=== PATIENT | female | born 1950 | race Caucasian/White ===

== ENCOUNTER 2017-03-16 19:46 | Inpatient (IN) ==
[2017-03-16] MEDS ORDERED: ONDANSETRON 4 MG/2 ML VIAL IV PRN (22:27)
[2017-03-16] MEDS ORDERED: ACETAMINOPHEN 325 MG TABLET PO PRN (22:27)
--- NOTE | 2017-03-16 22:41 | Hospitalist History & Physical ---
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 An MRI has been ordered for the morning. Consultation for hematology/oncology, radiation oncology and neurology have been ordered. Start Decadron. Current Visit: Yes (2) Altered mental status Status: Acute Assessment and plan: Secondary to metastatic lesions of the brain with surrounding edema. Current Visit: Yes Qualifiers: Altered mental status type: unspecified Qualified Code(s): R41.82 - Altered mental status, unspecified (3) Hypertension Status: Chronic Current Visit: Yes Qualifiers: Hypertension type: essential hypertension Qualified Code(s): I10 - Essential (primary) hypertension (4) Lung nodules Status: Acute Assessment and plan: This could be the primary source of her metastatic lesion given her previous history of smoking. Will likely need tissue biopsy for definitive diagnosis. Melanoma is also in the differential given her history of melanoma skin excision from the leg. Current Visit: Yes History of Present Illness Chief complaint: AMS History of present illness: Ms. Witt is a 67 year old female with a hx of HTN that presented to the ER at [facility] in [place] with AMS. She was found down at home by family members. They report she was last seen well yesterday evening around 6 PM. She was worked up in the emergency department for acute stroke. CT scan of her brain showed lesions consistent with metastatic disease. She was noted to have some surrounding edema. I was contacted by the emergency room physician in [place] for direct admission transfer to the ICU for further evaluation of her newly diagnosed metastatic disease. The patient was found to have lesions on her chest x-ray as well. She is unable to provide much history due to her altered mental status and confusion. Family members are not present at the time of her arrival to the CCU. She was seen and examined in room 126 with her nurse at the bedside. Records from [facility] were reviewed including her CT scan and chest x-ray as well as preliminary lab work. Her renal function is normal. Her history is significant for prior tobacco use and prior melanoma excision from her leg. CT of the brain shows multiple intra-axial lesions presumed to represent widespread metastatic disease. Lesions are seen in the left cerebellum, right posterior parietal lobe, and high left parietal lobe. She was found to have a 4 x 5 cm area of low density in the left cerebellum consistent with edema. Chest x-ray shows multiple right sided lung nodules. Home Medications Medication Instructions Recorded Confirmed Type Lovastatin 20 mg PO DAILY 03/16/17 03/16/17 History Meclizine [Antivert] 25 mg PO DAILY 03/16/17 03/16/17 History Propranolol Tab [Inderal Tab] 20 mg PO BID 03/16/17 03/16/17 History Tramadol HCl [Tramadol Tab] 50 mg PO Q6H PRN 03/16/17 03/16/17 History hydroCHLOROthiazide 25 mg PO DAILY 03/16/17 03/16/17 History [Hydrochlorothiazide] Allergies Allergy/AdvReac Type Severity Reaction Status Date / Time Sulfa (Sulfonamide Allergy Verified 03/16/17 22:25 Antibiotics) Medical,Surgical,& Family Hx - Medical History Cardio: History of: Hypertension - Surgical History Additional Surgical History: Skin cancer excision - Family History Family History: Reports;: Family Hypertension - Social History Smoking Status: Former smoker Frequency of Alcohol Use: None Type of Drug Use: None Marital Status: Lives With:: Alone Functional capacity: independent ambulation ROS unobtainable: due to mental status Exam - Constitutional Exam: Constitutional System: Mild distress. No tremulousness. Cooperative but confused. Unable to answer all questions. Head: Normocephalic, atraumatic. Ears, Nose and Throat System: No pain or tenderness. No epistaxis or discharge Eyes System: Pupils equal, round, and reactive. Extraocular muscles intact. Neck: Supple, without adenopathy, No jugular venous distention. No thyromegaly, neck mass, or prior surgery apparent. Respiratory System: Chest clear to auscultation. Cardiovascular System: Heart with regular rate and rhythm. No murmur. GI System: Abdomen soft, nontender. Normo active bowel sounds present. Musculoskeletal System: limbs with no pedal edema. Full distal pulses. Neurological System: No discernable sensory deficit. No aphasia. Responses are slowed but she is able to follow commands. No unilateral weakness noted. Psychiatric System: Conversation is limited due to altered mental status Results - Labs Lab Results: I have reviewed the past 24 hour labs - Diagnostic Findings Procedure: Chest x-ray: report reviewed by me, CT: report reviewed by me
[2017-03-16] MEDS: DEXAMETHASONE 4 MG/1 ML VIAL IV SCH (23:08)
[2017-03-16] MEDS: hydrALAZINE 20 MG/1 ML VIAL IV PRN (23:08)
[2017-03-17 05:00] LABS: Basophils % 0.1 % (0.0-0.8); Hematocrit 43.2 VOL% (35.7-47.0); Hemoglobin 15.1 GM/DL (12.0-16.0); Immature Granulocytes % 0.5 %; Immature Granulocytes Absolute 0.06 #; Lymphocytes # 0.5 10*3/uL (1.4-4.0); Lymphocytes % 3.9 % (21.3-54.2); Mean Corpuscular Hemoglobin 30 PG (27-34); Mean Corpuscular Volume 84.4 FL (87-102); Mean Platelet Volume 11.2 FL (9.6-12.0); Monocytes # 0.1 10*3/uL (0.11-0.8); Monocytes % 0.9 % (1.7-12.7); Neutrophils # 12.1 10*3/uL (1.4-7.4); Neutrophils % 94.6 % (38.7-73.9); Platelet Count 276 T/CUMM (130-400); Red Blood Count 5.12 MC/CUMM (3.8-5.5); Red Cell Distribution Width 13.2 % (9.3-17.3); White Blood Count 12.8 T/CUMM (4-12)
[2017-03-17] MEDS: DEXAMETHASONE 4 MG/1 ML VIAL IV SCH (05:20)
[2017-03-17 05:38] LABS: Albumin 3.7 G/DL (3.4-5.0); Bilirubin,Total 0.9 MG/DL (0.2-1.0); Calcium 9.1 MG/DL (8.5-10.1); Magnesium 1.7 MG/DL (1.8-2.4); Potassium 3.2 MMOL/L (3.5-5.1); Total Protein 6.5 G/DL (6.4-8.3)
[2017-03-17 05:40] LABS: Giant Platelets Few; Hypochromasia Slight; Lymphocytes 5 % (20-55); Platelet Estimate Adequate; Segmented Neutrophils 94 % (50-85); Total Cells Counted 100
--- NOTE | 2017-03-17 07:41 | XRay Report ---
Single view the chest. Indication: Shortness of breath. No previous study. The heart is normal in size. Mild atelectasis/hypoaeration is seen at the lung bases. The pulmonary vasculature is normal. There is no consolidation, pneumothorax, or pleural effusion. Degenerative changes of the shoulders and spinal column, mild in severity. Impression: Mild bilateral basilar atelectasis. PROCEDURE INTERPRETED AT [facility] DEPARTMENT OF RADIOLOGY Final Report Signed by: Dr. Melvi Foss
--- NOTE | 2017-03-17 07:44 | Oncology Consult Note ---
History of Present Illness Chief complaint: Brain metastases History of present illness: Ms. Witt is a 67 year old female who presented by referral from [place] with CT brain scan that suggested metastatic disease to the brain. The patient has a history of melanoma. She is also a heavy smoker. I cannot locate a report on the CT brain scan nor can I view the film of the brain scan, if it is available. In addition, I cannot obtain any additional information from this patient. She is not alert enough to give me an adequate history. I have reviewed her chest x-ray. It was interpreted as showing no masses but there appears to be a left mid lung nodule.. We may end up needing CTs of the chest, abdomen and pelvis ultimately. Past medical history is positive for allergies to sulfa and possibly additional meds but they are not listed. The remainder of this patient's past medical history, social history, review of systems as listed below. It is not complete. She is not alert enough to provide additional details and she appears acutely confused. Medical,Surgical,& Family Hx - Medical History Cardio: History of: Hypertension - Surgical History Additional Surgical History: Skin cancer excision - Family History Family History: Reports;: Family Hypertension - Social History Smoking Status: Former smoker Frequency of Alcohol Use: None Type of Drug Use: None Marital Status: Lives With:: Alone Functional capacity: independent ambulation ROS unobtainable: due to mental status Physical examination: General: The patient actually does not appear acutely ill although she is obviously disoriented and cannot answer questions in detail. She does attempt to cooperate however. Eyes: Normal lids and conjunctivae. ENT: Oral mucosa and pharynx are normal. Her pharynx is free of lesions or exudates. Her trachea is midline. Her voice is clear. Her hearing appears normal. Neck: Her trachea is midline and I palpate no abnormalities of the thyroid. Lungs: Relatively normal breath sounds without rubs, rales or rhonchi. The chest moves symmetrically with respiration and there is no chest wall tenderness. Cardiovascular: Her heart rhythm is regular without murmur, gallop or rub. There is no jugular venous distention, clubbing or cyanosis. Abdomen: I palpate no masses or organomegaly and there is no distention or ascites. Musculoskeletal: There is no focal muscle atrophy or bone or joint deformity. Neurologic: Cranial nerves II through XII appear to be intact. I find no focal neurologic deficits. Nodes: There is no cervical, supraclavicular or axillary adenopathy. Breasts: I palpate no masses. Skin: On cursory examination I could not find any definite site of the melanoma excision. I cannot locate the CT report or visual loss of the CT scan. Impression: Brain metastases of indefinite primary. She needs pulmonary consultation and radiation oncology consultation. I am ordering tumor markers and I will increase the dose of her corticosteroids. Thank you. Home Medications Medication Instructions Recorded Confirmed Type Lovastatin 20 mg PO DAILY 03/16/17 03/16/17 History Meclizine [Antivert] 25 mg PO DAILY 03/16/17 03/16/17 History Propranolol Tab [Inderal Tab] 20 mg PO BID 03/16/17 03/16/17 History Tramadol HCl [Tramadol Tab] 50 mg PO Q6H PRN 03/16/17 03/16/17 History hydroCHLOROthiazide 25 mg PO DAILY 03/16/17 03/16/17 History [Hydrochlorothiazide] Allergies Allergy/AdvReac Type Severity Reaction Status Date / Time Sulfa (Sulfonamide Allergy Verified 03/16/17 22:25 Antibiotics) Medical,Surgical,& Family Hx - Medical History Cardio: History of: Hypertension Neurology: History of: Vertigo Endocrine: History of: Dyslipidemia - Surgical History Neurologic Surgeries: Patient denies: Neurologic Surgery - Family History Family History: Reports;: Family Hypertension - Social History Smoking Status: Former smoker Frequency of Alcohol Use: None Type of Drug Use: None Exam - Constitutional Vitals: Period Temp Pulse Resp BP Sys/Carvalho Pulse Ox Last 24 Hr 97.9 F-98.4 F 56-119 14-26 99-177/52-165 96-100 Results - Labs CBC & BMP: 03/17/17 04:39 03/18/17 03:58
[2017-03-17] MEDS ORDERED: DEXAMETHASONE 4 MG/1 ML VIAL IV SCH (08:00)
--- NOTE | 2017-03-17 09:02 | Hospitalist Progress Note ---
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 Dr Young has seen her and ordered brain MRI. consider biopsy of nodules on her back. Dr Villagomez to see. She is on Keppra and IV Decadron. Dr Cal Jensen consulted. Her altered mental status and behavior is a little bit improved with Decadron this morning. She has pulmonary mass and nodules reported on outside CXR. Get CT of chest abd pelvis today. 2)hypokalemia- replace 3)HTN- start her propanolol back. Current Visit: Yes (2) Hypokalemia Status: Acute Current Visit: Yes (3) Altered mental status Status: Acute Current Visit: Yes Qualifiers: Altered mental status type: unspecified Qualified Code(s): R41.82 - Altered mental status, unspecified (4) Hypertension Status: Chronic Current Visit: Yes Qualifiers: Hypertension type: essential hypertension Qualified Code(s): I10 - Essential (primary) hypertension (5) Lung nodules Status: Acute Current Visit: Yes Hospitalist: Subjective Interval history: No events since admission, but is more alert per nursing. Answers questions though she is still unreliable historian. She does know her name and where she is. Exam - Constitutional Vitals: Period Temp Pulse Resp BP Sys/Carvalho Pulse Ox Last 24 Hr 97.8 F-98.4 F 56-122 14-26 99-177/52-165 96-100 General appearance: normal weight, mild distress (restless, wants to take her gown off) - Head Head exam: Present: normocephalic, atraumatic - Eye Eye exam: Present: EOMI. Absent: scleral icterus - ENT ENT exam: Present: normal exam - Neck Neck exam: Absent: lymphadenopathy, thyromegaly - Respiratory Respiratory exam: Present: clear to auscultation bilaterally - Cardiovascular Cardiovascular exam: Present: regular rate and rhythm - GI/Abdominal GI/Abdominal exam: Present: normal bowel sounds, soft. Absent: tenderness - Extremities Exam Extremities exam: Absent: edema - Back Exam Back exam: Present: other (4 subq nodules 3 of which have redness of the overlying skin. NO drainage, not tender or warm. They are hard/calcified but mobile. ) - Neurological Exam Neurological exam: Present: alert, other (cooperative for short periods then back to being restless. follows commands. ). Absent: oriented X3 - Skin Skin exam: Present: other (no inguinal or cerviacal or axillary lymphadenopathy) Results - Labs CBC & BMP: 03/17/17 04:39 03/17/17 04:39 Lab Results: I have reviewed the past 24 hour labs
[2017-03-17] MEDS: DEXAMETHASONE INJ 20 MG in SODIUM CHLORIDE 0.9% 50 ML IV SCH ×2 (09:03→20:34)
[2017-03-17] MEDS: ENOXAPARIN 40 MG/0.4 ML SYRINGE SUBCUT SCH (09:03)
[2017-03-17] MEDS: PANTOPRAZOLE 40 MG TABLET PO SCH (09:03)
[2017-03-17] MEDS: levETIRAcetam 500 MG TABLET PO SCH ×2 (09:03→20:34)
[2017-03-17] MEDS: PROPRANOLOL 20 MG TABLET PO SCH ×2 (09:03→20:34)
[2017-03-17] MEDS: LOVASTATIN 20 MG TABLET PO SCH (09:03)
[2017-03-17] MEDS: LORazepam 2 MG/1 ML VIAL IV PRN ×4 (09:04→22:05)
[2017-03-17] MEDS ORDERED: POTASSIUM CHLORIDE 20 MEQ TABLET PO ONE (09:07)
--- NOTE | 2017-03-17 09:10 | Neurology Consult Note ---
History of Present Illness History of present illness: Patient is unable to provide me any history. History basically obtained from the chart. Ms. Witt is a 67 year old right-handed white lady who was transferred from [place] with CT brain scan that suggested metastatic disease to the brain. She was found down at first it was thought that she had a stroke. CT of the brain revealed multiple lesions of the brain suggestive of metastatic disease. Her chest x-ray is also positive for multiple lesions. The patient has a history of melanoma. She is also a heavy smoker. No further information is available. CT scan of the brain has not been uploaded for review. Home Medications Medication Instructions Recorded Confirmed Type Lovastatin 20 mg PO DAILY 03/16/17 03/16/17 History Meclizine [Antivert] 25 mg PO DAILY 03/16/17 03/16/17 History Propranolol Tab [Inderal Tab] 20 mg PO BID 03/16/17 03/16/17 History Tramadol HCl [Tramadol Tab] 50 mg PO Q6H PRN 03/16/17 03/16/17 History hydroCHLOROthiazide 25 mg PO DAILY 03/16/17 03/16/17 History [Hydrochlorothiazide] Allergies Allergy/AdvReac Type Severity Reaction Status Date / Time Sulfa (Sulfonamide Allergy Verified 03/16/17 22:25 Antibiotics) ROS unobtainable: due to mental status, due to delirium Medical,Surgical,& Family Hx - Medical History Cardio: History of: Hypertension Neurology: History of: Vertigo Endocrine: History of: Dyslipidemia - Surgical History Neurologic Surgeries: Patient denies: Neurologic Surgery - Family History Family History: Reports;: Family Hypertension - Social History Smoking Status: Former smoker Frequency of Alcohol Use: None Type of Drug Use: None Exam - Constitutional Vitals: Period Temp Pulse Resp BP Sys/Carvalho Pulse Ox Last 24 Hr 97.8 F-98.4 F 56-122 14-26 99-177/52-165 96-100 Exam: GENERAL: Patient is in no acute distress. NECK: Neck is supple. There is no JVD. No carotid bruits present. No thyroid masses. CVS: First and second heart sounds are normal. There is no S3 present. Regular rate and rhythm. RESPIRATORY: Lungs are clear to auscultation without any rales or rhonchi. ABDOMEN: Soft and non-tender. Bowel sounds are present. There is no hepatosplenomegaly. EXT: There is no palpable edema. Peripheral pulses are present. Skin: No rashes Central Nervous system: General: Sleepy but arousable Speech: Fluent Comprehension: Impaired Facial expressions: Normal Cranial Nerves: CN1/Olfactory: Normal CN II/ Optic: Normal, Visual Urias unreliable CN III, and : [place] & EOMI CN V: Normal & intact CN VII: face is symmetric CNVIII: Normal CN XI/X/XI/XII: Cannot be assessed Motor: Bulk and Tone is normal. Strength cannot be assessed however moving all 4 extremities Sensory: Unreliable Reflexes: 1+ and symmetrical Cerebellar function: Cannot be assessed Toes: Equivocal Gait: Cannot be assessed Assessment: Metastatic brain disease Delirium Recommendations: Agree with steroids. Continue Keppra for now Agree with MRI of the brain and radiation oncology consultation We will watch her closely Thank you for the consult Results - Labs CBC & BMP: 03/17/17 04:39 03/17/17 04:39
--- NOTE | 2017-03-17 11:59 | Magnetic Resonance Report ---
Exam: MR head/brain w and wo con Date: 03/17/2017 4:00 AM Comparison: CT brain 03/16/2017 Indication: Brain metastasis, history of melanoma Technique:[Multiple acquisitions were obtained including sagittal T1 scans before and after the injection of 13 cc of Dotarem, coronal T1 scans with contrast, and axial ADC, diffusion, FLAIR, T2, GRE, and T1 scans before and after the injection contrast. Scans were obtained on a 1.5 Linda magnet.] Findings: The lateral and third ventricles are normal in size with with no midline displacement. Effacement of the fourth ventricle with adjacent cerebral edema which contains a 26 x 25 x 19 mm homogeneously enhancing lesion. Multiple smaller enhancing lesions are noted in the right cerebellum, right occipital lobe, right parietal, and left frontoparietal location. Renal enhancement within the 23 x 21 x 21 mm lesion in the right posterior parietal location. No evidence of significant hemorrhage or extracerebral collection. Minimal cerebellar ectopia with unremarkable sella. Mucosal thickening/fluid in the paranasal sinuses, especially the opacified left sphenoid sinus. No acute findings in the orbits, temporal bones, qawalangin of [place], or venous sinuses. Impression: Evidence of metastatic disease. There is associated edema especially within the largest lesion in the left cerebellum with compression and displacement of the fourth ventricle and minimal cerebellar ectopia. Sinusitis. PROCEDURE INTERPRETED AT [facility] DEPARTMENT OF RADIOLOGY Final Report Signed by: Dr. Hoda Kirk
[2017-03-17] MEDS: hydrALAZINE 20 MG/1 ML VIAL IV PRN (12:06)
--- NOTE | 2017-03-17 13:24 | CT Report ---
Referring physician: Sharonda Toscano EXAM: CT chest, abdomen and pelvis with contrast DATE: 03/17/2017 COMPARISON: None REASON: Brain metastasis, history of melanoma TECHNIQUE: Axial images of the chest, abdomen and pelvis were obtained after administration of 100 cc of Omnipaque 350 IV contrast. Minimal oral contrast given. Sagittal and coronal reformatted images were provided. Total DLP was 597.20 mGy*cm. FINDINGS:: The heart is borderline in size with cardiac fat pads. No evidence of aortic dissection or pulmonary emboli. Numerous noncalcified pulmonary nodules are noted. Some of the findings are difficult to separate from the level of the rossy and exclude additional adenopathy. The largest mass measures 29 mm in the right lower lobe. There is associated atelectasis. Numerous soft tissue masses are noted the largest finding in the chest measuring 26 mm in the upper right back location. The liver is normal in size with no masses, dilated ducts, or calcified gallstones. The wall of the gallbladder appears minimally thickened with mild fatty infiltration of the liver. Calcified granulomata in the spleen which is normal in size. 13 mm hypodense the noted in the medial spleen which fills in with contrast on the delayed scans. Fatty replacement of the head of the pancreas. 25 mm left adrenal nodule which demonstrates central hypodensity. Small hypodensities in the kidneys which may represent cysts. 7 mm exophytic hypodensity in the lower pole of the left kidney. The abdominal aorta is normal in size with arterial calcifications but no adjacent adenopathy. Small hiatal hernia with no dilatation of the small bowel. Diverticulosis of the colon with limited evaluation of the bowel which contains only minimal oral contrast. No evidence of diverticulitis, appendicitis, free air, or free fluid. Atrophic uterus and ovaries. Leblanc catheter within decompressed urinary bladder. Degenerative changes are noted. IMPRESSION: Findings consistent with pulmonary and soft tissue metastatic disease in patient with history of melanoma. Additional indeterminate lesions in the spleen, left adrenal gland, and left kidney. Ultrasound guided biopsy of the largest soft tissue mass in the upper right back location may be helpful for further evaluation. Nonspecific thickening of the wall of the gallbladder with fatty infiltration of the liver. Leblanc catheter in decompressed urinary bladder. Small hiatal hernia with diverticulosis of colon. The CT exam was performed using one or more of the following dose reduction techniques: Automated exposure control and adjustment of the mA and/or kV according to patient size. PROCEDURE INTERPRETED AT [facility] DEPARTMENT OF RADIOLOGY Final Report Signed by: Dr. Hoda Kirk
[2017-03-17] MEDS: traMADol 50 MG TABLET PO PRN (20:34)
[2017-03-18] MEDS: LORazepam 2 MG/1 ML VIAL IV PRN (04:35)
[2017-03-18 04:45] LABS: Calcium 9.1 MG/DL (8.5-10.1); Osmolality,Calculated 280.7 MOS/KG (273-304); Potassium 3.7 MMOL/L (3.5-5.1)
--- NOTE | 2017-03-18 07:43 | Oncology Progress Note ---
Oncology Subjective PN Interval history: Currently the patient is sedated. She is being sedated because she becomes agitated and removes her clothes and struggles. It is difficult to determine whether she is more alert with a higher dose of dexamethasone or not. We need to establish the origin of the metastatic disease to her brain. I still cannot see the films. It may be necessary to refer her to an institution that has neurosurgery available. We will continue high-dose corticosteroids. Tumor markers are pending except for the CEA level, which is normal. Exam - Constitutional Vitals: Period Temp Pulse Resp BP Sys/Carvalho Pulse Ox Last 24 Hr 97.1 F-98.9 F 59-122 12-24 96-172/43-132 90-99 Results - Labs CBC & BMP: 03/17/17 04:39 03/18/17 03:58
[2017-03-18] MEDS: PROPRANOLOL 20 MG TABLET PO SCH ×2 (09:11→20:59)
[2017-03-18] MEDS: DEXAMETHASONE INJ 20 MG in SODIUM CHLORIDE 0.9% 50 ML IV SCH ×2 (09:21→20:58)
[2017-03-18] MEDS: PANTOPRAZOLE 40 MG TABLET PO SCH (09:22)
[2017-03-18] MEDS: ENOXAPARIN 40 MG/0.4 ML SYRINGE SUBCUT SCH (09:22)
[2017-03-18] MEDS: levETIRAcetam 500 MG TABLET PO SCH ×2 (09:22→20:59)
[2017-03-18] MEDS: LOVASTATIN 20 MG TABLET PO SCH (09:22)
[2017-03-18 09:27] LABS: PT Patient Result 10.2 SECS
--- NOTE | 2017-03-18 11:18 | General Surgery Consult Note ---
Assessment and Plan - Time spent with patient Time spent with patient: Greater than 30 minutes (1) back nodules Status: Acute Assessment and plan: 67-year-old white female admitted by the hospitalist service with altered mental status and found to have lung nodules and metastatic cancer to the brain. Patient is currently sedated due to agitation. Patient was found to have multiple calcified nodules on her back that hospitalist has requested biopsy due to her current state of health. Patient's family is requesting at this time to hold off on biopsy so they can discuss it further with more family members and the patient. Dr. Andersen will see and examined patient and further recommendations to follow. When and/or if family is ready he can do a punch biopsy at the bedside when needed. 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 Witt is a 67 year old white female with history of hypertension admitted by the hospitalist service on 03/16/2017 with altered mental status. She is found to have lung nodules and metastatic cancer to the brain. She is being followed by neurology and oncology. Patient is currently sedated due to her agitation. History taken from nursing and medical record. Patient was found to have multiple nodules on her back that Dr. Andersen was consulted to evaluate. Patient is afebrile vital signs are stable, labs are relatively normal. She is being transferred to the floor. Home Medications Medication Instructions Recorded Confirmed Type Lovastatin 20 mg PO DAILY 03/16/17 03/16/17 History Meclizine [Antivert] 25 mg PO DAILY 03/16/17 03/16/17 History Propranolol Tab [Inderal Tab] 20 mg PO BID 03/16/17 03/16/17 History Tramadol HCl [Tramadol Tab] 50 mg PO Q6H PRN 03/16/17 03/16/17 History hydroCHLOROthiazide 25 mg PO DAILY 03/16/17 03/16/17 History [Hydrochlorothiazide] Allergies Allergy/AdvReac Type Severity Reaction Status Date / Time Sulfa (Sulfonamide Allergy Verified 03/16/17 22:25 Antibiotics) Medical,Surgical,& Family Hx - Medical History Cardio: History of: Hypertension Neurology: History of: Vertigo Endocrine: History of: Dyslipidemia - Surgical History Neurologic Surgeries: Patient denies: Neurologic Surgery - Family History Family History: Reports;: Family Hypertension - Social History Smoking Status: Former smoker Frequency of Alcohol Use: None Type of Drug Use: None ROS unobtainable: due to mental status Exam - Constitutional Vitals: Period Temp Pulse Resp BP Sys/Carvalho Pulse Ox Last 24 Hr 96.6 F-98.9 F 59-113 12-24 96-172/43-132 90-99 Exam: 67-year-old white female, sedated Chest clear CV regular rate and rhythm Abdomen soft nontender Upper back with multiple calcified nodules that are movable, no cellulitis or drainage Extremities no edema Results - Labs CBC & BMP: 03/17/17 04:39 03/18/17 03:58 Lab Results: I have reviewed the past 24 hour labs
--- NOTE | 2017-03-18 11:19 | Hospitalist Progress Note ---
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 Discussion of treatment options iwth Dr Jensen this afternoon. family leaning toward no biopsy or treatment at this time. They aslo anticipate her being DNR once her son arrives. 2)hypokalemia- replaced 3)HTN- better on propanolol. 4)dispo- to floor. Current Visit: Yes (2) Hypokalemia Status: Acute Current Visit: Yes (3) Altered mental status Status: Acute Current Visit: Yes Qualifiers: Qualified Code(s): R41.82 - Altered mental status, unspecified (4) Hypertension Status: Chronic Current Visit: Yes Qualifiers: Qualified Code(s): I10 - Essential (primary) hypertension (5) Lung nodules Status: Acute Current Visit: Yes Hospitalist: Subjective Interval history: Ms Witt is increasingly alert "by the hour" per her family. She is not alert enough for them to talk to her about her metastatic disease which they want to do themselves. Her daughters are here along with her sister and brother and they all agree that she should be DNR but want their brother to be here to be included in that decision moment. She has told them many times she did not want any treatment for anything and they are confident she would not want resuscitation. Their brother should be here this morning. In the meantime they are counting on Dr Cal Jensen to give them treatment options before they decide not to do anything- she will go to cancer center at 1pm. They also decline any biopsy at this time because they don't think she would want anything invasive. I talked to the family about her prognosis and code status for 15 minutes. Exam - Constitutional Vitals: Period Temp Pulse Resp BP Sys/Carvalho Pulse Ox Last 24 Hr 96.6 F-98.9 F 59-113 12-24 96-172/43-132 90-99 General appearance: normal weight, no acute distress (wakes more easily and is less restless, knows she is in the hospital but doesn't ask why. ) - Eye Eye exam: Present: EOMI. Absent: scleral icterus Pupils: Present: WELL[place] - Respiratory Respiratory exam: Present: clear to auscultation bilaterally - Cardiovascular Cardiovascular exam: Present: regular rate and rhythm - GI/Abdominal GI/Abdominal exam: Present: normal bowel sounds, soft. Absent: tenderness - Extremities Exam Extremities exam: Absent: edema Results - Labs CBC & BMP: 03/17/17 04:39 03/18/17 03:58 Lab Results: I have reviewed the past 24 hour labs
--- NOTE | 2017-03-18 14:06 | Radiation Oncology Letter ---
Radiation Oncology - Letter Ms. Witt is a 67-year-old white female who has a history of melanoma diagnosed in November 2015 she was treated with excision the original primary was involving the right thigh, had a thickness of invasion of 19.5 mm it was Titus's level 4 with surface ulceration. Patient recently presented with changes in mental status some CT of the head showed evidence of intracranial lesions an MRI was performed which showed multifocal brain metastasis bilaterally. CT of the chest abdomen and pelvis showed pulmonary and soft tissue metastasis. The patient is referred for palliative radiotherapy with a multifocal lesion like this in the brain I would favor treating with 3000 cGy in 10 fractions to try to achieve palliation.
--- NOTE | 2017-03-18 14:10 | Event Note ---
D/w patient's daughter about need for biopsy. At this point, the family does not want any invasive procedures. They have stated that they will attempt to get prior pathology and radiology results/scans sent up for review. Can complete a formal consult if/when a new tissue biopsy is needed.
--- NOTE | 2017-03-18 16:14 | Neurology Progress Note ---
Neurology - PN : Subjective Interval history: Patient is sedated at this time. Chart reviewed. Family did not want to be very aggressive at this point. MRI of the brain was reviewed. It shows multiple lesions suggestive of metastasis. Family also thinking about initiation of radiation treatment. No seizures reported. Exam (Progress Note) - Constitutional Vitals: Period Temp Pulse Resp BP Sys/Carvalho Pulse Ox Last 24 Hr 96.6 F-98.4 F 59-113 12-24 97-172/43-125 90-99 Exam: GENERAL: Patient is in no acute distress. NECK: Neck is supple. There is no JVD. No carotid bruits present. No thyroid masses. CVS: First and second heart sounds are normal. There is no S3 present. Regular rate and rhythm. RESPIRATORY: Lungs are clear to auscultation without any rales or rhonchi. ABDOMEN: Soft and non-tender. Bowel sounds are present. There is no hepatosplenomegaly. EXT: There is no palpable edema. Peripheral pulses are present. Skin: No rashes Central Nervous system: General: Sedated Speech: None Comprehension: Impaired Facial expressions: Normal Cranial Nerves: CN1/Olfactory: Normal CN II/ Optic: Normal, Visual Urias unreliable CN III, and : WELL[place] & EOMI CN V: Normal & intact CN VII: face is symmetric CNVIII: Normal CN XI/X/XI/XII: Cannot be assessed Motor: Bulk and Tone is normal. Strength cannot be assessed however moving all 4 extremities Sensory: Unreliable Reflexes: 1+ and symmetrical Cerebellar function: Cannot be assessed Toes: Equivocal Gait: Cannot be assessed Assessment: Metastatic brain disease Delirium Recommendations: Agree with steroids. 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 Current Visit: Yes
[2017-03-18] MEDS: traMADol 50 MG TABLET PO PRN (22:07)
--- NOTE | 2017-03-19 08:12 | Oncology Progress Note ---
Oncology Subjective PN Interval history: I received word yesterday that the family did not want to pursue a tissue diagnosis. I have not met with the family yet. I attempted to meet with him yesterday but they were not in the CCU waiting room. Apparently the family wants to get the prior pathology report from the resection of the melanoma. I know that the pathology report is around and I understand that the melanoma was ulcerated and that there may have been other poor prognostic findings on it. I actually had a conference with 1 of the patient's daughters this morning. Ms. Witt is more alert today, probably due to the increase in corticosteroids. What I have explained to the daughter is that we cannot use targeted therapy for a cancer of unknown primary. We need a tissue diagnosis. This is most likely metastatic melanoma but insurance carriers insist on tissue diagnosis at this point. If we can document this is melanoma, we could consider Keytruda next or possibly 1 of the other targeted therapies although in my opinion, Keytruda has diffuse side effects and may have among the highest response rates. It is given once every 3 weeks and is given 1 day every 3 weeks. The daughter expresses the opinion that Ms. Witt will not likely accept this and I am certainly not trying to convince her to take treatment that she does not want. In fact, with brain metastases, the likelihood of her surviving another 6 months is very slim. If this does represent metastatic melanoma, prognosis is poor. I still cannot locate the pathology report from the original resection of the melanoma. I do not know whether specific markers which may be important. Testing for BRAF, MEK , KIT livery car driver mutations may be important. Exam - Constitutional Vitals: Period Temp Pulse Resp BP Sys/Carvalho Pulse Ox Last 24 Hr 97.0 F-97.8 F 63-99 16-20 99-156/48-97 92-97 Results - Labs CBC & BMP: 03/17/17 04:39 03/18/17 03:58
[2017-03-19] MEDS: ENOXAPARIN 40 MG/0.4 ML SYRINGE SUBCUT SCH (09:31)
[2017-03-19] MEDS: DEXAMETHASONE INJ 20 MG in SODIUM CHLORIDE 0.9% 50 ML IV SCH ×2 (09:32→22:10)
[2017-03-19] MEDS: PROPRANOLOL 20 MG TABLET PO SCH ×2 (09:33→21:12)
[2017-03-19] MEDS: levETIRAcetam 500 MG TABLET PO SCH ×2 (09:33→21:11)
[2017-03-19] MEDS: PANTOPRAZOLE 40 MG TABLET PO SCH (09:33)
[2017-03-19] MEDS: LOVASTATIN 20 MG TABLET PO SCH (09:33)
--- NOTE | 2017-03-19 11:18 | Hospitalist Progress Note ---
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 The patient's oncologist is evaluating and discussing treatment options with the patient and her family. Current Visit: Yes Hospitalist: Subjective Interval history: The patient is resting quietly and has no seizure activity at this time. The patient has not complained of pain. Exam - Constitutional Vitals: Period Temp Pulse Resp BP Sys/Carvalho Pulse Ox Last 24 Hr 97.6 F-97.8 F 71-99 16-20 113-156/59-86 95-97 General appearance: no acute distress - Respiratory Respiratory exam: Present: clear to auscultation bilaterally - Cardiovascular Cardiovascular exam: Present: regular rate and rhythm - GI/Abdominal GI/Abdominal exam: Present: normal bowel sounds Results - Labs CBC & BMP: 03/17/17 04:39 03/18/17 03:58 Lab Results: I have reviewed the past 24 hour labs
[2017-03-19 11:56] LABS: Cancer Antigen 125 12 U/mL (<46)
[2017-03-20] MEDS: LORazepam 2 MG/1 ML VIAL IV PRN ×3 (01:03→14:08)
[2017-03-20 01:56] LABS: Breast Carcinoma Ag(CA 27.29) < 12.0 U/mL (<=38.0)
[2017-03-20] MEDS: traMADol 50 MG TABLET PO PRN ×2 (04:08→21:44)
--- NOTE | 2017-03-20 07:39 | Oncology Progress Note ---
Oncology Subjective PN Interval history: When I talked to the patient's family yesterday, the daughter expressed the feeling that they would not want to place the patient on any kind of targeted intravenous therapy. They were going to talk this over however. I have explained to them that we definitely need a tissue diagnosis before we could even pursue systemic chemotherapy. I had another extremely lengthy talk with a second daughter today. They want to proceed with radiation therapy. Ms. Witt was lucid yesterday and indicated that she did not want to be "cut on" and declined to have any type of biopsy procedure. At this point, I explained to the second daughter that we cannot assume that this is metastatic melanoma and in addition we need additional tissue to evaluate it for any mutations it might be present and that might affect our approach to targeted therapy. I will be available to discuss additional treatment options with the family but I will not make any plans to actually proceed with systemic therapy until after she finishes radiation therapy and has had a biopsy proven diagnosis. Exam - Constitutional Vitals: Period Temp Pulse Resp BP Sys/Carvalho Pulse Ox Last 24 Hr 97.6 F-99.1 F 63-89 16-20 130-176/64-83 92-97 Results - Labs CBC & BMP: 03/17/17 04:39 03/18/17 03:58
[2017-03-20] MEDS: ENOXAPARIN 40 MG/0.4 ML SYRINGE SUBCUT SCH (08:43)
[2017-03-20] MEDS: LOVASTATIN 20 MG TABLET PO SCH (08:43)
[2017-03-20] MEDS: PANTOPRAZOLE 40 MG TABLET PO SCH (08:43)
[2017-03-20] MEDS: levETIRAcetam 500 MG TABLET PO SCH ×2 (08:43→21:43)
[2017-03-20] MEDS: PROPRANOLOL 20 MG TABLET PO SCH ×2 (08:44→21:43)
[2017-03-20] MEDS: DEXAMETHASONE INJ 20 MG in SODIUM CHLORIDE 0.9% 50 ML IV SCH ×2 (08:44→21:45)
--- NOTE | 2017-03-20 10:36 | CT Report ---
Referring physician: Braxton Sanz Exam: CT treatment planning Date: 03/20/2017 Comparison: 03/16/2017 Reason: Brain metastasis Technique: Axial images of the head were obtained without the use of contrast. Total DLP was 1678.9 mGy*cm. Findings: The third and lateral ventricles remain normal in size. Persistent effacement of the fourth ventricle with multiple metastatic lesions. There is surrounding edema with findings most remaining most pronounced in the left cerebellum. Persistent mucosal thickening/fluid in the paranasal sinuses, especially in the left sphenoid sinus. Impression: The scans appear adequate radiation therapy plan purposes in patient with known metastatic disease. Sinusitis.. The CT exam was performed using one or more of the following dose reduction techniques: Automated exposure control and adjustment of the mA and/or kV according to patient size. PROCEDURE INTERPRETED AT [facility], [place] DEPARTMENT OF RADIOLOGY Final Report Signed by: Dr. Hoda Kirk
--- NOTE | 2017-03-20 11:15 | Hospitalist Progress Note ---
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 The patient's oncologist is evaluating and discussing treatment options with the patient and her family. Dr. Jensen will begin radiation treatments to her brain this afternoon. I discussed and coordinate care with case management associate to consider swing bed transfer to [facility]. Current Visit: Yes Hospitalist: Subjective Interval history: The patient had simulation for radiation therapy this morning and will return this evening for her first fraction. The patient is resting comfortably today and she had Ativan to improve her anxiety earlier this morning. I reviewed her progress today and plan of care with her daughter at the bedside. Exam - Constitutional Vitals: Period Temp Pulse Resp BP Sys/Carvalho Pulse Ox Last 24 Hr 97.8 F-99.1 F 58-89 16-20 105-176/51-83 92-96 Exam: Constitutional System: Mild distress. Ears, Nose and Throat System: No evidence of Otitis or Mastoiditis. No epistaxis or discharge Eyes System: Pupils equal, round, and reactive. Extraocular muscles intact. Neck: Supple, without adenopathy, No jugular venous distention. No thyromegaly , neck mass, or prior surgery apparent. Respiratory System: Chest clear to auscultation. Cardiovascular System: Heart with regular rate and rhythm. No murmur. Results - Labs CBC & BMP: 03/17/17 04:39 03/18/17 03:58 Lab Results: I have reviewed the past 24 hour labs
--- NOTE | 2017-03-20 15:38 | Neurology Progress Note ---
Neurology - PN : Subjective Interval history: Patient underwent her first whole brain radiation treatment. Tolerated treatment well. She sleeps a lot. Family would like to hold off to chemotherapy at this time. They will see how she tolerates radiation first. No seizure activity reported. Exam (Progress Note) - Constitutional Vitals: Period Temp Pulse Resp BP Sys/Carvalho Pulse Ox Last 24 Hr 97.8 F-99.1 F 58-129 18-20 105-148/51-81 92-95 Exam: GENERAL: Patient is in no acute distress. NECK: Neck is supple. There is no JVD. No carotid bruits present. No thyroid masses. CVS: First and second heart sounds are normal. There is no S3 present. Regular rate and rhythm. RESPIRATORY: Lungs are clear to auscultation without any rales or rhonchi. ABDOMEN: Soft and non-tender. Bowel sounds are present. There is no hepatosplenomegaly. EXT: There is no palpable edema. Peripheral pulses are present. Skin: No rashes Central Nervous system: General: Sedated Speech: None Comprehension: Impaired Facial expressions: Normal Cranial Nerves: CN1/Olfactory: Normal CN II/ Optic: Normal, Visual Urias unreliable CN III, and : WELL[place] & EOMI CN V: Normal & intact CN VII: face is symmetric CNVIII: Normal CN XI/X/XI/XII: Cannot be assessed Motor: Bulk and Tone is normal. Strength cannot be assessed however moving all 4 extremities Sensory: Unreliable Reflexes: 1+ and symmetrical Cerebellar function: Cannot be assessed Toes: Equivocal Gait: Cannot be assessed Results - Labs CBC & BMP: 03/17/17 04:39 03/18/17 03:58 Assessment and Plan (1) Delirium Status: Acute Assessment and plan: This is slightly better. No further intervention needed. 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 Defer further management to Dr. Cal Jensen and Dr. Araiza Sign off please call as needed Current Visit: Yes
[2017-03-20] MEDS: QUEtiapine 25 MG TABLET PO SCH (21:42)
[2017-03-21 06:12] LABS: Hematocrit 36.9 VOL% (35.7-47.0); Hemoglobin 12.6 GM/DL (12.0-16.0); Immature Granulocytes % 0.8 %; Immature Granulocytes Absolute 0.08 #; Lymphocytes # 0.6 10*3/uL (1.4-4.0); Lymphocytes % 6.2 % (21.3-54.2); Mean Corpuscular HGB Conc 34.1 GM/DL (32-36); Mean Corpuscular Hemoglobin 29 PG (27-34); Mean Corpuscular Volume 85.6 FL (87-102); Mean Platelet Volume 11.5 FL (9.6-12.0); Monocytes # 0.3 10*3/uL (0.11-0.8); Monocytes % 3.4 % (1.7-12.7); Neutrophils % 89.6 % (38.7-73.9); Platelet Count 263 T/CUMM (130-400); Red Blood Count 4.31 MC/CUMM (3.8-5.5); Red Cell Distribution Width 13.2 % (9.3-17.3)
[2017-03-21 06:42] LABS: Calcium 9.4 MG/DL (8.5-10.1); Magnesium 2.6 MG/DL (1.8-2.4); Osmolality,Calculated 279.8 MOS/KG (273-304); Potassium 4.1 MMOL/L (3.5-5.1)
[2017-03-21] MEDS: DEXAMETHASONE INJ 20 MG in SODIUM CHLORIDE 0.9% 50 ML IV SCH ×2 (09:41→20:44)
[2017-03-21] MEDS: PROPRANOLOL 20 MG TABLET PO SCH ×2 (09:42→20:44)
[2017-03-21] MEDS: PANTOPRAZOLE 40 MG TABLET PO SCH (09:42)
[2017-03-21] MEDS: LOVASTATIN 20 MG TABLET PO SCH (09:42)
[2017-03-21] MEDS: levETIRAcetam 500 MG TABLET PO SCH ×2 (09:42→20:44)
[2017-03-21] MEDS: LORazepam 2 MG/1 ML VIAL IV PRN (09:42)
[2017-03-21] MEDS: ENOXAPARIN 40 MG/0.4 ML SYRINGE SUBCUT SCH (09:42)
--- NOTE | 2017-03-21 10:28 | Oncology Progress Note ---
Oncology Subjective PN Interval history: Ms. Witt is the most alert that I have seen her during this hospital stay. I explained to her that she has brain metastases. She wanted to know the locations and I told her there were multiple areas. She is undergoing radiation therapy. I have explained to her that if we consider trying any type of targeted therapy that we will need a tissue diagnosis first. She is thinking about this. I am really not convinced that she understands what is going on still. However , she needs the radiation first and will consider targeted therapies later. I will check back Friday. Exam - Constitutional Vitals: Period Temp Pulse Resp BP Sys/Carvalho Pulse Ox Last 24 Hr 97.5 F-98.5 F 53-129 16-20 109-159/56-75 93-96 Results - Labs CBC & BMP: 03/21/17 05:30 03/21/17 05:30
--- NOTE | 2017-03-21 16:26 | Hospitalist Progress Note ---
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 The patient's oncologist is evaluating and discussing treatment options with the patient and her family. Dr. Jensen has administered her second radiation fraction today. I discussed and coordinate care with pillowcase cleaner to consider swing bed transfer to [facility]. Current Visit: Yes Hospitalist: Subjective Interval history: The patient is more alert today. Speech is spontaneous and oriented. She continues with radiation therapy. Exam - Constitutional Vitals: Period Temp Pulse Resp BP Sys/Carvalho Pulse Ox Last 24 Hr 97.3 F-98.4 F 51-102 18-20 109-175/56-75 93-97 Exam: Constitutional System: No distress. The patient does have some twitching of the left cheek. Ears, Nose and Throat System: No evidence of Otitis or Mastoiditis. No epistaxis or discharge Eyes System: Pupils equal, round, and reactive. Extraocular muscles intact. Neck: Supple, without adenopathy, No jugular venous distention. No thyromegaly , neck mass, or prior surgery apparent. Respiratory System: Chest clear to auscultation. Cardiovascular System: Heart with regular rate and rhythm. No murmur. Results - Labs CBC & BMP: 03/21/17 05:30 03/21/17 05:30 Lab Results: I have reviewed the past 24 hour labs
[2017-03-21] MEDS: QUEtiapine 25 MG TABLET PO SCH (20:44)
[2017-03-22] MEDS: ENOXAPARIN 40 MG/0.4 ML SYRINGE SUBCUT SCH (09:19)
[2017-03-22] MEDS: DEXAMETHASONE INJ 20 MG in SODIUM CHLORIDE 0.9% 50 ML IV SCH ×2 (09:19→20:51)
[2017-03-22] MEDS: PROPRANOLOL 20 MG TABLET PO SCH ×2 (09:20→20:50)
[2017-03-22] MEDS: levETIRAcetam 500 MG TABLET PO SCH ×2 (09:20→20:50)
[2017-03-22] MEDS: LOVASTATIN 20 MG TABLET PO SCH (09:21)
[2017-03-22] MEDS: PANTOPRAZOLE 40 MG TABLET PO SCH (09:21)
--- NOTE | 2017-03-22 12:41 | Hospitalist Progress Note ---
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 The patient's oncologist is evaluating and discussing treatment options with the patient and her family. Dr. Jensen has administered her third radiation fraction today. I discussed and coordinate care with binder caser to consider swing bed transfer to [facility]. Current Visit: Yes Hospitalist: Subjective Interval history: Mrs. Witt is sitting up on the side of the bed today. Her daughter and the patient described her baseline essential tremor. The patient's shaking appears to be at baseline. She requires sedation in order to get accurate radiation therapy. Exam - Constitutional Vitals: Period Temp Pulse Resp BP Sys/Carvalho Pulse Ox Last 24 Hr 97.6 F-98.4 F 56-115 18-20 136-170/72-84 90-97 Exam: Constitutional System: No distress. The patient does have some twitching of the left cheek which is her essential tremor according to her daughter. Ears, Nose and Throat System: No evidence of Otitis or Mastoiditis. No epistaxis or discharge Eyes System: Pupils equal, round, and reactive. Extraocular muscles intact. Neck: Supple, without adenopathy, No jugular venous distention. No thyromegaly , neck mass, or prior surgery apparent. Respiratory System: Chest clear to auscultation. Cardiovascular System: Heart with regular rate and rhythm. No murmur. Results - Labs CBC & BMP: 03/21/17 05:30 03/21/17 05:30 Lab Results: I have reviewed the past 24 hour labs
[2017-03-22] MEDS: QUEtiapine 25 MG TABLET PO SCH (20:51)
[2017-03-22] MEDS: TEMAZEPAM 7.5 MG CAPSULE PO PRN (23:33)
[2017-03-23 06:32] LABS: Basophils % 0.1 % (0.0-0.8); Hematocrit 37.1 VOL% (35.7-47.0); Hemoglobin 12.8 GM/DL (12.0-16.0); Immature Granulocytes % 0.6 %; Immature Granulocytes Absolute 0.06 #; Lymphocytes # 0.6 10*3/uL (1.4-4.0); Lymphocytes % 5.4 % (21.3-54.2); Mean Corpuscular HGB Conc 34.5 GM/DL (32-36); Mean Corpuscular Hemoglobin 30 PG (27-34); Mean Corpuscular Volume 85.9 FL (87-102); Mean Platelet Volume 12.1 FL (9.6-12.0); Monocytes # 0.4 10*3/uL (0.11-0.8); Monocytes % 3.9 % (1.7-12.7); Neutrophils # 9.1 10*3/uL (1.4-7.4); Platelet Count 241 T/CUMM (130-400); Red Blood Count 4.32 MC/CUMM (3.8-5.5); Red Cell Distribution Width 13.2 % (9.3-17.3); White Blood Count 10.2 T/CUMM (4-12)
[2017-03-23] MEDS: PROPRANOLOL 20 MG TABLET PO SCH ×2 (09:34→20:11)
[2017-03-23] MEDS: levETIRAcetam 500 MG TABLET PO SCH ×2 (09:34→20:11)
[2017-03-23] MEDS: LOVASTATIN 20 MG TABLET PO SCH (09:34)
[2017-03-23] MEDS: ENOXAPARIN 40 MG/0.4 ML SYRINGE SUBCUT SCH (09:35)
[2017-03-23] MEDS: PANTOPRAZOLE 40 MG TABLET PO SCH (09:35)
[2017-03-23] MEDS: DEXAMETHASONE INJ 20 MG in SODIUM CHLORIDE 0.9% 50 ML IV SCH ×2 (09:35→20:09)
--- NOTE | 2017-03-23 13:14 | Hospitalist Progress Note ---
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 The patient's oncologist is evaluating and discussing treatment options with the patient and her family. Dr. Jensen has administered her second fraction of radiation on Friday. I discussed and coordinate care with assistant case manager to consider swing bed transfer to [facility]. Current Visit: Yes Hospitalist: Subjective Interval history: -this is a 67-year-old lady with history of melanoma and now with metastases to the brain. The patient has had 2 radiation fractions with 8 more to go. The patient also has essential tremor. The patient's low performance status persuade her family and oncologist that she could not tolerate systemic chemotherapy and therefore they have not desired to pursue a tissue diagnosis. The patient has not had any seizure activity in the last 48 hours. The patient' s strength and coordination have been improving in the last 48 hours. Exam - Constitutional Vitals: Period Temp Pulse Resp BP Sys/Carvalho Pulse Ox Last 24 Hr 97.1 F-98.6 F 55-80 18-20 107-195/52-88 93-98 Exam: Constitutional System: No distress. The patient does have some twitching of the left cheek which is her essential tremor according to her daughter. Ears, Nose and Throat System: No evidence of Otitis or Mastoiditis. No epistaxis or discharge Eyes System: Pupils equal, round, and reactive. Extraocular muscles intact. Neck: Supple, without adenopathy, No jugular venous distention. No thyromegaly , neck mass, or prior surgery apparent. Respiratory System: Chest clear to auscultation. Cardiovascular System: Heart with regular rate and rhythm. No murmur. Results - Labs CBC & BMP: 03/23/17 04:20 03/21/17 05:30 Lab Results: I have reviewed the past 24 hour labs
[2017-03-23] MEDS: QUEtiapine 25 MG TABLET PO SCH (20:11)
[2017-03-23] MEDS: traMADol 50 MG TABLET PO PRN (20:11)
[2017-03-23] MEDS: TEMAZEPAM 7.5 MG CAPSULE PO PRN (20:11)
--- NOTE | 2017-03-24 08:08 | Oncology Progress Note ---
Oncology Subjective PN Interval history: Ms. Witt has brain metastases that are presumed to be due to metastatic malignant melanoma. She has declined a biopsy of some skin lesions that would prove that she has recurrence of her melanoma. She is not a candidate for any type of systemic therapy without tissue proof that she has metastatic disease. I have explained this to her family. She may not want to consider systemic therapy anyway but without a tissue diagnosis we cannot make specific recommendations concerning systemic therapy. Dr. Sanz mentioned the possibility of transfer to the [facility] to swing bed to continue radiation therapy. I have discussed systemic therapy with Ms. Witt again. She has declined it. She does not want to pursue a biopsy to prove that she has recurrent melanoma or any other malignancy for that matter. From my standpoint, she can be referred to a swing bed or proceed with radiation therapy outpatient. This will give her time to reconsider whether she wants to take systemic therapy of any type. I would not consider actual chemotherapy. It would be targeted therapy of some type, probably Keytruda to begin with. I will check on her from time to time but will not round on her every day. If I need to see her on a certain date, please do not hesitate to tell the nurses that. Neurologically she has made a phenomenal turnaround. I did not recognize her today. She is fully oriented and alert. She demonstrates no focal neurologic deficits. She is very animated today and clearly understands her situation. I do think she is in denial of source however. Exam - Constitutional Vitals: Period Temp Pulse Resp BP Sys/Carvalho Pulse Ox Last 24 Hr 97.1 F-99.3 F 50-64 16-20 101-181/54-81 95-98 Results - Labs CBC & BMP: 03/23/17 04:20 03/21/17 05:30
[2017-03-24] MEDS: DEXAMETHASONE INJ 20 MG in SODIUM CHLORIDE 0.9% 50 ML IV SCH ×2 (09:17→20:41)
[2017-03-24] MEDS: LORazepam 2 MG/1 ML VIAL IV PRN (09:18)
[2017-03-24] MEDS: PANTOPRAZOLE 40 MG TABLET PO SCH (09:19)
[2017-03-24] MEDS: PROPRANOLOL 20 MG TABLET PO SCH ×2 (09:19→20:42)
[2017-03-24] MEDS: levETIRAcetam 500 MG TABLET PO SCH ×2 (09:19→20:42)
[2017-03-24] MEDS: ENOXAPARIN 40 MG/0.4 ML SYRINGE SUBCUT SCH (09:19)
[2017-03-24] MEDS: LOVASTATIN 20 MG TABLET PO SCH (09:19)
[2017-03-24] MEDS: ALBUTEROL 0.63 MG/3 ML NEB RESP TX SCH ×2 (11:26→18:56)
--- NOTE | 2017-03-24 12:12 | Hospitalist Progress Note ---
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 Young following Current Visit: Yes (2) Generalized weakness Status: Acute Assessment and plan: pt evaluation and ot evaluation Current Visit: Yes (3) Altered mental status Status: Acute Assessment and plan: due to brain mets Current Visit: Yes Qualifiers: Altered mental status type: unspecified Qualified Code(s): R41.82 - Altered mental status, unspecified (4) Hypertension Status: Chronic Assessment and plan: controlled on propranolol Current Visit: Yes Qualifiers: Hypertension type: essential hypertension Qualified Code(s): I10 - Essential (primary) hypertension (5) Lung nodules Status: Acute Assessment and plan: presumed melanoma Current Visit: Yes (6) Hypokalemia Status: Acute Assessment and plan: resolved Current Visit: Yes (7) back nodules Status: Acute Current Visit: Yes Hospitalist: Subjective Interval history: Patient on her third radiation treatment. She is extremely weak and would like to go to [facility] for rehab. After she is finished with her radiation treatments family will decide for sure about hospice or home health. Informed patient's family today that radiation is in outpatient treatment. Exam - Constitutional Vitals: Period Temp Pulse Resp BP Sys/Carvalho Pulse Ox Last 24 Hr 97.3 F-99.3 F 50-76 16-20 101-181/47-81 95-100 Exam: Heart Rate-[RRR] Lungs-[CTAB] GI-[+bs soft, NT] Ext-[no edema] Neuro [Motor 5/5], [alert and oriented times 3] psych [normal mood and affect] General [no acute distress] Results - Labs CBC & BMP: 03/23/17 04:20 03/21/17 05:30 Lab Results: I have reviewed the past 24 hour labs - Diagnostic Findings Procedure: CT Abdomen and Pelvis: report reviewed by me, CT - chest: report reviewed by me ( Findings consistent with pulmonary and soft tissue)
[2017-03-24] MEDS: QUEtiapine 25 MG TABLET PO SCH (20:42)
[2017-03-24] MEDS: TEMAZEPAM 7.5 MG CAPSULE PO PRN (22:30)
[2017-03-25] MEDS: ALBUTEROL 0.63 MG/3 ML NEB RESP TX SCH ×3 (00:10→13:35)
[2017-03-25] MEDS: PROPRANOLOL 20 MG TABLET PO SCH (08:26)
[2017-03-25] MEDS: levETIRAcetam 500 MG TABLET PO SCH (08:26)
[2017-03-25] MEDS: LORazepam 2 MG/1 ML VIAL IV PRN (08:26)
[2017-03-25] MEDS: ENOXAPARIN 40 MG/0.4 ML SYRINGE SUBCUT SCH (08:26)
[2017-03-25] MEDS: PANTOPRAZOLE 40 MG TABLET PO SCH (08:26)
[2017-03-25] MEDS: LOVASTATIN 20 MG TABLET PO SCH (08:26)
[2017-03-25] MEDS: DEXAMETHASONE INJ 20 MG in SODIUM CHLORIDE 0.9% 50 ML IV SCH (08:36)
--- NOTE | 2017-03-25 09:53 | Discharge Summary ---
<Toni Oliver - Last Filed: 03/25/17 09:31> Hospital Course - Hospital Course Hospital Course: Ms. Witt is a 67 year old female with a PMHx of HTN and melanoma that presented as a direct transfer from [facility] in [place] to our ICU with AMS after CT of the brain showed lesions consistent with metastatic disease on 03/16/2017. CT of the brain shows multiple intra-axial lesions presumed to represent widespread metastatic disease from Melanoma. Lesions are seen in the left cerebellum, right posterior parietal lobe, and high left parietal lobe. She was found to have a 4 x 5 cm area of low density in the left cerebellum consistent with edema. Chest x-ray shows multiple right sided lung nodules. Neurology, Oncology and general surgery were consulted to assist in the care of this patient. Upon consultation and final updated pathology report, it was determined that the patient has melanoma with brain metastases. Therapeutic options were discussed with the patient. She is not a candidate for chemotherapy given the fact that the chemotherapy drugs do not penetrate the blood brain barrier. The patient has declined potential treatment with Keytruda or Yervoy given the diffuse side effects. She is a candidate for radiation therapy and has already received 4 treatments of radiation and will need 7 more. The patient made a remarkable turn around neurologically over the weekend and voiced understanding of her situation, though denial of source is highly suspected. She is weak from radiation but stable for discharge at this time. She will continue her radiation therapy at [facility] during rehabilitation at which time a decision regarding hospice or home health can be made. She has hypertension for which she takes propranolol and I have added Norvasc. Patient' s family also asked for things for restless leg gas and constipation. Patient will be discharged to [facility] for rehab. Patient seen and examined in hospital course reviewed and edited. - Time spent with patient Time with patient DS: Greater than 30 minutes Discharge Plan - Discharge Data Disposition: Disch/Xfer-Ip Rehab Fac - Discharge Medications New Albuterol Neb [Proventil Neb] 0.63 mg RESP TX TID PRN PRN Reason: Wheezing amLODIPine [Norvasc] 5 mg PO DAILY #30 tablet Dexamethasone Tab [Decadron Tab] 12 mg PO BID #20 tablet levETIRAcetam TAB [Keppra Tab] 500 mg PO BID tablet Pantoprazole Tab [Protonix Tab] 40 mg PO DAILY tablet Pramipexole [Mirapex] 0.125 mg PO BEDTIME #30 tablet QUEtiapine [SEROquel] 50 mg PO BEDTIME tablet Temazepam [Restoril] 7.5 mg PO BEDTIME PRN #30 capsule PRN Reason: Sleep Acetaminophen Tab [Tylenol Tab] 650 mg PO Q4H PRN tablet PRN Reason: Fever, Headache, Mild Pain Bisacodyl Tab [Dulcolax Tab] 5 mg PO DAILY PRN #30 tablet PRN Reason: Constipation LORazepam TAB [Ativan Tab] 0.25 mg PO TID PRN #20 tablet PRN Reason: Anxiety Simethicone [Gas Relief] 80 mg PO Q6HR PRN #30 tab.chew PRN Reason: Gas Continue Tramadol HCl [Tramadol Tab] 50 mg PO Q6H PRN #30 tablet PRN Reason: Pain Mild To Moderate (1-7) Lovastatin 20 mg PO DAILY Propranolol Tab [Inderal Tab] 20 mg PO BID Discontinued Meclizine [Antivert] 25 mg PO DAILY hydroCHLOROthiazide [Hydrochlorothiazide] 25 mg PO DAILY - Follow Up or Referral - Forms/Instructions Exam - Constitutional Vitals: Period Temp Pulse Resp BP Sys/Carvalho Pulse Ox Last 24 Hr 97.5 F-98.7 F 50-83 16-20 120-178/47-78 94-99 DS: Provider Date of admission: 03/16/17 21:59 Primary care physician: Martha Quintana MD Attending physician on admission: Martha Quintana MD Consults: 03/16/17 22:27 Consult to Physician [CONS] Routine Comment: Brain mets Consulting Provider: Wilfredo Young Person Notified: Dr. Young Date Notified: 03/17/17 Time Notified: 07:19 Consult Notification Comment: Called on cell phone. 03/16/17 22:44 Consult to Occupational Therapy [CONS] Routine Reason for Occupational Therapy: Evaluate and Treat Consult to Physical Therapy [CONS] Routine Reason for Physical Therapy: Evaluate and Treat Consult to Physician [CONS] Routine Comment: brain mets, ams Consulting Provider: Sravan Villagomez Person Notified: Dr. Villagomez Date Notified: 03/17/17 Time Notified: 08:45 03/16/17 23:41 Consult to Dietitian [CONS] Routine Reason for Dietitian: Dietary Consult 03/17/17 08:34 Consult to Physician [CONS] Routine Comment: Consulting Provider: Rubio Jensen Consulting Provider Notified: Yes Consult to Specialist Group: Oncology When should Consulting Provider be notified: Now Person Notified: Dr. Jensen's office. Date Notified: 03/17/17 Time Notified: 15:02 Consult Notification Comment: Called Dr. Jensen's office. 03/18/17 07:19 Consult to Physician [CONS] Routine Comment: Possible punch biopsy on superficial nodules Consulting Provider: Wilbert Andersen When should Consulting Provider be notified: Now 03/18/17 19:00 Consult to Pastoral Services [CONS] Routine Comment: Family request to see Molasses Preparer. Pastoral Screen: Declines Visit Request Molasses Preparer Visit 03/24/17 08:34 Consult to Physical Therapy [CONS] Routine Reason for Physical Therapy: Evaluate and Treat 03/24/17 12:13 Consult to Occupational Therapy [CONS] Routine Reason for Occupational Therapy: Weakness 03/24/17 12:14 Consult to Case Mgmt/Social Srvs [CONS] Routine Reason for Case Mgmt/Social Srvs: Rehab Swingbed/SNF/Detention Consult Comment: ready to go today Discharging clinician: Toni SHELLEY Expected date of discharge: 03/25/17 <Pushpa Lagunas - Last Filed: 03/25/17 10:52> Hospital Course - Time spent with patient Time with patient DS: Greater than 30 minutes (60 min) Diagnosis - Discharge Diagnosis (1) 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 Absent: rhonchi, wheezes - Cardiovascular Cardiovascular exam: Present: regular rate and rhythm. Absent: systolic murmur - GI/Abdominal GI/Abdominal exam: Present: normal bowel sounds, soft. Absent: tenderness - Extremities Exam Extremities exam: Present: normal inspection, normal capillary refill - Neurological Exam Neurological exam: Present: alert, oriented X3
[2017-03-25 11:54] VITALS: BP 143/68
== END 2017-03-25 14:35 | disposition swing bed (61) | DRG 54 ==
LOC: N.CC 21:59 → SUATTDRO 21:59 → N.4E 03-18 16:22
PROVIDERS: ADMIT Family Medicine; ATTEND Internal Medicine

== ENCOUNTER 2017-05-25 18:06 | Inpatient (IN) ==
[2017-05-25] MEDS ORDERED: chlorproMAZINE INJ 50 MG in SODIUM CHLORIDE 0.9% 100 ML IV PRN (19:58)
[2017-05-25] MEDS ORDERED: guaiFENesin 200 MG/10 ML UDCUP PO PRN (19:58)
[2017-05-25] MEDS ORDERED: MAGNESIUM HYDROXIDE SUSP 30 ML UDCUP PO PRN (19:58)
[2017-05-25] MEDS ORDERED: chlorproMAZINE INJ 25 MG in SODIUM CHLORIDE 0.9% 100 ML IV PRN (19:58)
[2017-05-25] MEDS ORDERED: MYLANTA/LIDO VISC 2:1 300 ML BOTTLE SWISH/SPIT PRN (19:58)
[2017-05-25] MEDS ORDERED: ACETAMINOPHEN 325 MG TABLET PO PRN (19:58)
[2017-05-25] MEDS ORDERED: diphenhydrAMINE CAP 25 MG CAPSULE PO PRN (19:58)
[2017-05-25] MEDS ORDERED: PROMETHAZINE INJ 25 MG in SODIUM CHLORIDE 0.9% 50 ML IV PRN (19:58)
[2017-05-25] MEDS ORDERED: LACTULOSE 20 GM/30 ML UDCUP PO PRN (19:58)
[2017-05-25] MEDS ORDERED: ALPRAZolam 0.25 MG TABLET PO PRN (19:58)
[2017-05-25] MEDS ORDERED: traMADol 50 MG TABLET PO PRN (19:58)
[2017-05-25] MEDS ORDERED: ALUMINUM/MAGNES/SIMETH MAX STR 30 ML UDCUP PO PRN (19:58)
[2017-05-25] MEDS ORDERED: BENZTROPINE 2 MG/2 ML AMP IV PRN (19:58)
[2017-05-25] MEDS ORDERED: ONDANSETRON 4 MG/2 ML VIAL IV PRN (19:58)
[2017-05-25] MEDS ORDERED: LOPERAMIDE 2 MG CAPSULE PO PRN ×2 (19:58)
[2017-05-25] MEDS ORDERED: MYLANTA/LIDO VISC 2:1 300 ML BOTTLE SWISH/SWAL PRN (19:58)
[2017-05-25] MEDS ORDERED: chlorproMAZINE 25 MG TABLET PO PRN (19:58)
[2017-05-25] MEDS ORDERED: MAGNESIUM SULF RIDER 2 GM in PREMIX 1 EACH IV PRN (20:08)
[2017-05-25] MEDS ORDERED: MAGNESIUM SULF RIDER 4 GM in PREMIX 1 EACH IV PRN (20:08)
[2017-05-25] MEDS: SODIUM CHLORIDE 0.9% 1,000 ML IV SCH (21:47)
[2017-05-25] MEDS: MEROPENEM 500 MG in SODIUM CHLORIDE 0.9% 50 ML IV SCH (22:00)
[2017-05-25 22:03] LABS: Apearance,Urine Slightly Hazy (Clear); Bacteria,Urine Many /HPF (Few); Bilirubin,Urine Negative (Negative); Blood, Urine Small mg/dL (Negative); Glucose,Urine (UA) Negative (Negative); Ketones,Urine Negative (Negative); Mucus,Urine Many /LPF (Occasional); Nitrite,Urine Negative (Negative); Protein,Urine 30 MG/DL; RBC,Urine 3 /HPF (0-4); Squamous Epithelial Cell,Urine Occasional /HPF (0-10); Urine Color Amber (Yellow); Urine Specific Gravity 1.018 (1.001-1.035); Urine Urobilinogen < 2.0 EU/DL (0.2-1.0); WBC,Urine 1 /HPF (0-6)
[2017-05-25] MEDS ORDERED: VANCOMYCIN INJ 1,000 MG in SODIUM CHLORIDE 0.9% 250 ML IV ONE (22:30)
[2017-05-25] MEDS: TEMAZEPAM 7.5 MG CAPSULE PO PRN (23:03)
[2017-05-26] MEDS: MEROPENEM 500 MG in SODIUM CHLORIDE 0.9% 50 ML IV SCH ×3 (04:55→20:18)
[2017-05-26 05:58] LABS: Basophils % 0.4 % (0.0-0.8); Hematocrit 24.6 VOL% (35.7-47.0); Hemoglobin 8.3 GM/DL (12.0-16.0); Immature Granulocytes % 21.5 %; Immature Granulocytes Absolute 0.55 #; Lymphocytes # 0.2 10*3/uL (1.4-4.0); Lymphocytes % 6.3 % (21.3-54.2); Mean Corpuscular HGB Conc 33.7 GM/DL (32-36); Mean Corpuscular Hemoglobin 30 PG (27-34); Mean Corpuscular Volume 89.8 FL (87-102); Mean Platelet Volume 11.1 FL (9.6-12.0); Monocytes # 0.2 10*3/uL (0.11-0.8); Monocytes % 6.3 % (1.7-12.7); Neutrophils # 1.7 10*3/uL (1.4-7.4); Neutrophils % 65.5 % (38.7-73.9); Platelet Count 122 T/CUMM (130-400); Red Blood Count 2.74 MC/CUMM (3.8-5.5); Red Cell Distribution Width 15.8 % (9.3-17.3); White Blood Count 2.6 T/CUMM (4-12)
[2017-05-26 06:37] LABS: Albumin 1.4 G/DL (3.4-5.0); Calcium 8.1 MG/DL (8.5-10.1); Magnesium 2.4 MG/DL (1.8-2.4); Potassium 3.6 MMOL/L (3.5-5.1); Total Protein 3.8 G/DL (6.4-8.3); Uric Acid 4.7 MG/DL (2.6-6.0)
[2017-05-26 06:44] LABS: Band Neutrophils 8 % (0-10); Hypochromasia 2+; Lymphocytes 9 % (20-55); Microcytosis 2+; Platelet Estimate Adequate; Segmented Neutrophils 77 % (50-85); Total Cells Counted 100
[2017-05-26] MEDS ORDERED: DEXAMETHASONE 4 MG TABLET PO SCH (09:30)
[2017-05-26] MEDS ORDERED: DEXAMETHASONE 10 MG/1 ML VIAL IV SCH (09:30)
[2017-05-26] MEDS: SODIUM CHLORIDE 0.9% 1,000 ML IV SCH ×2 (10:02→23:14)
[2017-05-26] MEDS: PROPRANOLOL 20 MG TABLET PO SCH (10:03)
[2017-05-26] MEDS: DEXAMETHASONE INJ 20 MG in SODIUM CHLORIDE 0.9% 50 ML IV SCH ×2 (10:03→21:17)
[2017-05-26] MEDS: hydroCHLOROthiazide 25 MG TABLET PO SCH (10:03)
[2017-05-26] MEDS: LOVASTATIN 20 MG TABLET PO SCH (10:04)
[2017-05-26] MEDS: POTASSIUM CHLORIDE 8 MEQ CAPSULE PO SCH (20:19)
[2017-05-26] MEDS: ZINC OXIDE PASTE 113 GM TUBE TOP SCH (21:18)
[2017-05-27] MEDS: MEROPENEM 500 MG in SODIUM CHLORIDE 0.9% 50 ML IV SCH ×3 (05:35→20:24)
[2017-05-27 07:05] LABS: Basophils % 0.3 % (0.0-0.8); Hematocrit 21.1 VOL% (35.7-47.0); Hemoglobin 7.3 GM/DL (12.0-16.0); Immature Granulocytes % 9.2 %; Immature Granulocytes Absolute 0.31 #; Lymphocytes # 0.2 10*3/uL (1.4-4.0); Lymphocytes % 6.8 % (21.3-54.2); Mean Corpuscular HGB Conc 34.6 GM/DL (32-36); Mean Corpuscular Hemoglobin 31 PG (27-34); Mean Platelet Volume 11.4 FL (9.6-12.0); Monocytes # 0.2 10*3/uL (0.11-0.8); Monocytes % 6.3 % (1.7-12.7); Neutrophils # 2.6 10*3/uL (1.4-7.4); Neutrophils % 77.4 % (38.7-73.9); Platelet Count 135 T/CUMM (130-400); Red Blood Count 2.37 MC/CUMM (3.8-5.5); Red Cell Distribution Width 15.6 % (9.3-17.3); White Blood Count 3.4 T/CUMM (4-12)
[2017-05-27 07:44] LABS: Band Neutrophils 3 % (0-10); Lymphocytes 6 % (20-55); Segmented Neutrophils 81 % (50-85); Total Cells Counted 100
[2017-05-27 07:45] LABS: Giant Platelets Few; Hypochromasia 1+; Microcytosis Slight; Ovalocytes Slight; Platelet Estimate Normal
[2017-05-27 07:48] LABS: Albumin 1.2 G/DL (3.4-5.0); Bilirubin,Total 0.7 MG/DL (0.2-1.0); Calcium 7.8 MG/DL (8.5-10.1); Magnesium 2.1 MG/DL (1.8-2.4); Osmolality,Calculated 282.4 MOS/KG (273-304); Potassium 2.6 MMOL/L (3.5-5.1); Total Protein 3.5 G/DL (6.4-8.3); Uric Acid 5.4 MG/DL (2.6-6.0)
[2017-05-27] MEDS ORDERED: SODIUM CHLORIDE 0.9% 250 ML IV PRN (07:48)
[2017-05-27] MEDS: hydroCHLOROthiazide 25 MG TABLET PO SCH (09:31)
[2017-05-27] MEDS: traMADol 50 MG TABLET PO PRN (09:32)
[2017-05-27] MEDS: LOVASTATIN 20 MG TABLET PO SCH (09:32)
[2017-05-27] MEDS: PROPRANOLOL 20 MG TABLET PO SCH (09:33)
[2017-05-27] MEDS: POTASSIUM CHLORIDE 8 MEQ CAPSULE PO SCH ×2 (09:34→20:25)
[2017-05-27] MEDS: DEXT 5% NACL 0.45% KCL 20 MEQ 20 MEQ/1,000 ML BAG IV SCH (09:36)
[2017-05-27] MEDS: SODIUM CHLORIDE 0.9% 1,000 ML IV SCH (09:36)
[2017-05-27] MEDS: DEXAMETHASONE INJ 20 MG in SODIUM CHLORIDE 0.9% 50 ML IV SCH ×2 (09:42→21:07)
[2017-05-27] MEDS: ZINC OXIDE PASTE 113 GM TUBE TOP SCH ×2 (14:10→20:25)
[2017-05-28] MEDS: MEROPENEM 500 MG in SODIUM CHLORIDE 0.9% 50 ML IV SCH ×3 (05:14→20:56)
[2017-05-28] MEDS: DEXT 5% NACL 0.45% KCL 20 MEQ 20 MEQ/1,000 ML BAG IV SCH ×4 (06:15→17:35)
[2017-05-28 06:50] LABS: Basophils % 0.4 % (0.0-0.8); Hematocrit 31.5 VOL% (35.7-47.0); Hemoglobin 11.2 GM/DL (12.0-16.0); Immature Granulocytes Absolute 0.11 #; Lymphocytes # 0.3 10*3/uL (1.4-4.0); Lymphocytes % 5.2 % (21.3-54.2); Mean Corpuscular HGB Conc 35.6 GM/DL (32-36); Mean Corpuscular Hemoglobin 31 PG (27-34); Mean Corpuscular Volume 86.3 FL (87-102); Mean Platelet Volume 11.8 FL (9.6-12.0); Monocytes # 0.3 10*3/uL (0.11-0.8); Monocytes % 4.7 % (1.7-12.7); Neutrophils # 4.9 10*3/uL (1.4-7.4); Neutrophils % 87.7 % (38.7-73.9); Platelet Count 155 T/CUMM (130-400); Red Blood Count 3.65 MC/CUMM (3.8-5.5); Red Cell Distribution Width 15.1 % (9.3-17.3); White Blood Count 5.6 T/CUMM (4-12)
[2017-05-28 07:16] LABS: Band Neutrophils 27 % (0-10); Lymphocytes 4 % (20-55); Segmented Neutrophils 65 % (50-85); Total Cells Counted 100
[2017-05-28 07:18] LABS: Acanthocytes 1+; Anisocytosis 1+; Poikilocytosis 2+
[2017-05-28] MEDS: hydroCHLOROthiazide 25 MG TABLET PO SCH (09:02)
[2017-05-28] MEDS: LOVASTATIN 20 MG TABLET PO SCH (09:03)
[2017-05-28] MEDS: PROPRANOLOL 20 MG TABLET PO SCH (09:03)
[2017-05-28] MEDS: POTASSIUM CHLORIDE 8 MEQ CAPSULE PO SCH ×2 (09:04→20:56)
[2017-05-28] MEDS: traMADol 50 MG TABLET PO PRN (09:05)
[2017-05-28] MEDS: DEXAMETHASONE INJ 20 MG in SODIUM CHLORIDE 0.9% 50 ML IV SCH ×2 (09:33→22:55)
[2017-05-28] MEDS: ZINC OXIDE PASTE 113 GM TUBE TOP SCH ×2 (09:34→21:04)
[2017-05-28] MEDS: TEMAZEPAM 7.5 MG CAPSULE PO PRN (20:56)
[2017-05-29] MEDS: DEXT 5% NACL 0.45% KCL 20 MEQ 20 MEQ/1,000 ML BAG IV SCH ×3 (02:30→21:29)
[2017-05-29] MEDS: MEROPENEM 500 MG in SODIUM CHLORIDE 0.9% 50 ML IV SCH ×3 (05:36→21:29)
[2017-05-29 08:06] LABS: Albumin 1.4 G/DL (3.4-5.0); Bilirubin,Total 0.6 MG/DL (0.2-1.0); Osmolality,Calculated 277.2 MOS/KG (273-304); Total Protein 3.9 G/DL (6.4-8.3)
[2017-05-29] MEDS: hydroCHLOROthiazide 25 MG TABLET PO SCH (09:15)
[2017-05-29] MEDS: DEXAMETHASONE 4 MG TABLET PO SCH ×2 (09:15→21:30)
[2017-05-29] MEDS: LOVASTATIN 20 MG TABLET PO SCH (09:16)
[2017-05-29] MEDS: PROPRANOLOL 20 MG TABLET PO SCH (09:16)
[2017-05-29] MEDS: POTASSIUM CHLORIDE 8 MEQ CAPSULE PO SCH ×2 (09:18→21:30)
[2017-05-29] MEDS: ZINC OXIDE PASTE 113 GM TUBE TOP SCH ×2 (09:30→21:30)
[2017-05-29] MEDS ORDERED: LIDOCAINE 1% 20 ML VIAL IM ONE (13:42)
[2017-05-29] MEDS: FLUCONAZOLE INJ 200 MG in PREMIX 1 EACH IV SCH (16:00)
[2017-05-29] MEDS: TEMAZEPAM 7.5 MG CAPSULE PO PRN (23:59)
[2017-05-30] MEDS: MEROPENEM 500 MG in SODIUM CHLORIDE 0.9% 50 ML IV SCH ×3 (05:01→23:56)
[2017-05-30 07:33] LABS: Basophils % 0.2 % (0.0-0.8); Hematocrit 36.5 VOL% (35.7-47.0); Hemoglobin 12.7 GM/DL (12.0-16.0); Immature Granulocytes % 8.5 %; Immature Granulocytes Absolute 0.82 #; Lymphocytes # 0.5 10*3/uL (1.4-4.0); Lymphocytes % 4.7 % (21.3-54.2); Mean Corpuscular HGB Conc 34.8 GM/DL (32-36); Mean Corpuscular Hemoglobin 30 PG (27-34); Mean Corpuscular Volume 86.5 FL (87-102); Mean Platelet Volume 11.5 FL (9.6-12.0); Monocytes # 0.3 10*3/uL (0.11-0.8); Monocytes % 3.2 % (1.7-12.7); Neutrophils % 83.4 % (38.7-73.9); Platelet Count 148 T/CUMM (130-400); Red Blood Count 4.22 MC/CUMM (3.8-5.5); Red Cell Distribution Width 14.2 % (9.3-17.3); White Blood Count 9.6 T/CUMM (4-12)
[2017-05-30 07:56] LABS: Calcium 7.8 MG/DL (8.5-10.1); Osmolality,Calculated 269.5 MOS/KG (273-304); Potassium 4.3 MMOL/L (3.5-5.1)
[2017-05-30 08:02] LABS: Albumin 1.5 G/DL (3.4-5.0); Bilirubin,Total 0.8 MG/DL (0.2-1.0); Calcium 8.1 MG/DL (8.5-10.1); Osmolality,Calculated 274.2 MOS/KG (273-304); Potassium 4.4 MMOL/L (3.5-5.1)
[2017-05-30 08:16] LABS: Band Neutrophils 18 % (0-10); Lymphocytes 5 % (20-55); Segmented Neutrophils 74 % (50-85); Total Cells Counted 100
[2017-05-30] MEDS ORDERED: LIDOCAINE 1%/EPI INJ 20 ML VIAL ONE (08:53)
[2017-05-30] MEDS ORDERED: MIDAZOLAM 2 MG/2 ML VIAL IV ONE (09:01)
[2017-05-30] MEDS ORDERED: LIDOCAINE 1% 5 ML VIAL ONE (09:31)
[2017-05-30] MEDS ORDERED: ONDANSETRON 4 MG/2 ML VIAL ONE (09:31)
[2017-05-30] MEDS ORDERED: PROPOFOL 200 MG/20 ML VIAL IV ONE (09:31)
[2017-05-30] MEDS ORDERED: PHENYLEPHRINE 1 MG/10 ML SYRINGE IV ONE (09:31)
[2017-05-30] MEDS ORDERED: fentaNYL 100 MCG/2 ML VIAL ONE (10:26)
[2017-05-30] MEDS ORDERED: SEVOFLURANE 1 UNIT/15 MINUTE INH ONE (10:26)
[2017-05-30] MEDS ORDERED: HYDROmorphone 2 MG/1 ML VIAL IV PRN (10:46)
[2017-05-30] MEDS ORDERED: ONDANSETRON 4 MG/2 ML VIAL IV PRN (10:46)
[2017-05-30] MEDS ORDERED: LACTATED RINGERS 1,000 ML IV SCH (11:00)
[2017-05-30] MEDS: DEXAMETHASONE 4 MG TABLET PO SCH ×2 (11:36→21:00)
[2017-05-30] MEDS: POTASSIUM CHLORIDE 8 MEQ CAPSULE PO SCH ×2 (11:37→21:00)
[2017-05-30] MEDS: ZINC OXIDE PASTE 113 GM TUBE TOP SCH ×2 (11:37→21:01)
[2017-05-30] MEDS: hydroCHLOROthiazide 25 MG TABLET PO SCH (11:37)
[2017-05-30] MEDS: PROPRANOLOL 20 MG TABLET PO SCH (11:37)
[2017-05-30] MEDS: LOVASTATIN 20 MG TABLET PO SCH (11:37)
[2017-05-30] MEDS: FLUCONAZOLE INJ 200 MG in PREMIX 1 EACH IV SCH (15:27)
[2017-05-30] MEDS: DEXT 5% NACL 0.45% KCL 20 MEQ 20 MEQ/1,000 ML BAG IV SCH (15:31)
[2017-05-30] MEDS: HYDROmorphone 2 MG/1 ML VIAL IV PRN (18:07)
[2017-05-31] MEDS: DEXT 5% NACL 0.45% KCL 20 MEQ 20 MEQ/1,000 ML BAG IV SCH ×2 (01:37→22:25)
[2017-05-31 03:14] LABS: Albumin 1.6 G/DL (3.4-5.0); Bilirubin,Total 0.5 MG/DL (0.2-1.0); Calcium 7.7 MG/DL (8.5-10.1); Osmolality,Calculated 270.2 MOS/KG (273-304); Potassium 4.7 MMOL/L (3.5-5.1); Total Protein 3.9 G/DL (6.4-8.3)
[2017-05-31] MEDS: HYDROmorphone 2 MG/1 ML VIAL IV PRN ×3 (06:37→21:29)
[2017-05-31] MEDS: MEROPENEM 500 MG in SODIUM CHLORIDE 0.9% 50 ML IV SCH ×3 (08:42→23:37)
[2017-05-31] MEDS: PROPRANOLOL 20 MG TABLET PO SCH (08:44)
[2017-05-31] MEDS: hydroCHLOROthiazide 25 MG TABLET PO SCH (08:44)
[2017-05-31] MEDS: DEXAMETHASONE 4 MG TABLET PO SCH ×2 (08:44→21:28)
[2017-05-31] MEDS: LOVASTATIN 20 MG TABLET PO SCH (08:50)
[2017-05-31] MEDS: POTASSIUM CHLORIDE 8 MEQ CAPSULE PO SCH ×2 (08:51→21:28)
[2017-05-31] MEDS: ZINC OXIDE PASTE 113 GM TUBE TOP SCH ×2 (14:11→21:34)
[2017-05-31] MEDS: SODIUM HYPOCHLORITE 0.25% IRRIG 473 ML BOTTLE TOP SCH (22:26)
[2017-06-01] MEDS: HYDROmorphone 2 MG/1 ML VIAL IV PRN ×4 (02:57→20:13)
[2017-06-01 05:53] LABS: Albumin 1.9 G/DL (3.4-5.0); Bilirubin,Total 0.7 MG/DL (0.2-1.0); Calcium 8.4 MG/DL (8.5-10.1); Osmolality,Calculated 269.4 MOS/KG (273-304); Potassium 4.6 MMOL/L (3.5-5.1); Total Protein 4.6 G/DL (6.4-8.3)
[2017-06-01] MEDS: MEROPENEM 500 MG in SODIUM CHLORIDE 0.9% 50 ML IV SCH ×2 (08:34→16:32)
[2017-06-01] MEDS: PROPRANOLOL 20 MG TABLET PO SCH (08:39)
[2017-06-01] MEDS: hydroCHLOROthiazide 25 MG TABLET PO SCH (08:39)
[2017-06-01] MEDS: LOVASTATIN 20 MG TABLET PO SCH (08:40)
[2017-06-01] MEDS: DEXAMETHASONE 4 MG TABLET PO SCH ×2 (08:40→20:45)
[2017-06-01] MEDS: POTASSIUM CHLORIDE 8 MEQ CAPSULE PO SCH ×2 (08:41→20:45)
[2017-06-01] MEDS ORDERED: FLUCONAZOLE 200 MG TABLET PO SCH (09:00)
[2017-06-01] MEDS ORDERED: VANCOMYCIN INJ 750 MG in SODIUM CHLORIDE 0.9% 250 ML IV SCH (09:00)
[2017-06-01] MEDS: VANCOMYCIN INJ 750 MG in SODIUM CHLORIDE 0.9% 150 ML IV SCH ×2 (10:44→18:31)
[2017-06-01] MEDS: ZINC OXIDE PASTE 113 GM TUBE TOP SCH ×2 (10:46→23:17)
[2017-06-01] MEDS: SODIUM HYPOCHLORITE 0.25% IRRIG 473 ML BOTTLE TOP SCH ×2 (11:25→23:17)
[2017-06-01] MEDS: DEXT 5% NACL 0.45% KCL 20 MEQ 20 MEQ/1,000 ML BAG IV SCH (22:50)
[2017-06-02] MEDS: MEROPENEM 500 MG in SODIUM CHLORIDE 0.9% 50 ML IV SCH ×3 (00:31→16:58)
[2017-06-02] MEDS: VANCOMYCIN INJ 750 MG in SODIUM CHLORIDE 0.9% 150 ML IV SCH (02:21)
[2017-06-02] MEDS: HYDROmorphone 2 MG/1 ML VIAL IV PRN ×3 (04:18→22:05)
[2017-06-02 06:14] LABS: Basophils % 0.2 % (0.0-0.8); Hematocrit 37.6 VOL% (35.7-47.0); Hemoglobin 13.1 GM/DL (12.0-16.0); Immature Granulocytes % 6.3 %; Immature Granulocytes Absolute 0.77 #; Lymphocytes # 0.4 10*3/uL (1.4-4.0); Lymphocytes % 3.3 % (21.3-54.2); Mean Corpuscular HGB Conc 34.8 GM/DL (32-36); Mean Corpuscular Hemoglobin 30 PG (27-34); Mean Corpuscular Volume 86.2 FL (87-102); Mean Platelet Volume 11.6 FL (9.6-12.0); Monocytes # 0.3 10*3/uL (0.11-0.8); Neutrophils # 10.8 10*3/uL (1.4-7.4); Neutrophils % 88.2 % (38.7-73.9); Platelet Count 135 T/CUMM (130-400); Red Blood Count 4.36 MC/CUMM (3.8-5.5); Red Cell Distribution Width 13.5 % (9.3-17.3); White Blood Count 12.2 T/CUMM (4-12)
[2017-06-02 06:44] LABS: Calcium 8.2 MG/DL (8.5-10.1); Magnesium 1.8 MG/DL (1.8-2.4); Osmolality,Calculated 265.5 MOS/KG (273-304); Potassium 4.2 MMOL/L (3.5-5.1)
[2017-06-02 06:49] LABS: Band Neutrophils 2 % (0-10); Giant Platelets Few; Hypochromasia 1+; Lymphocytes 1 % (20-55); Microcytosis Slight; Platelet Estimate Normal; Segmented Neutrophils 93 % (50-85); Total Cells Counted 100
[2017-06-02] MEDS: PROPRANOLOL 20 MG TABLET PO SCH (09:47)
[2017-06-02] MEDS: LOVASTATIN 20 MG TABLET PO SCH (09:47)
[2017-06-02] MEDS: POTASSIUM CHLORIDE 8 MEQ CAPSULE PO SCH ×2 (09:47→22:04)
[2017-06-02] MEDS: SODIUM HYPOCHLORITE 0.25% IRRIG 473 ML BOTTLE TOP SCH ×2 (09:47→22:04)
[2017-06-02] MEDS: DEXAMETHASONE 4 MG TABLET PO SCH ×2 (09:47→22:04)
[2017-06-02] MEDS: ZINC OXIDE PASTE 113 GM TUBE TOP SCH ×2 (09:47→22:04)
[2017-06-02] MEDS: hydroCHLOROthiazide 25 MG TABLET PO SCH (09:47)
[2017-06-02] MEDS: MEGESTROL ES 125 MG/ML 30 ML/BOTTLE PO SCH (09:48)
[2017-06-02] MEDS: DEXT 5% NACL 0.45% KCL 20 MEQ 20 MEQ/1,000 ML BAG IV SCH (09:48)
[2017-06-02] MEDS: VANCOMYCIN INJ 750 MG in SODIUM CHLORIDE 0.9% 250 ML IV SCH (15:58)
[2017-06-03] MEDS: MEROPENEM 500 MG in SODIUM CHLORIDE 0.9% 50 ML IV SCH ×2 (00:37→10:11)
[2017-06-03] MEDS: VANCOMYCIN INJ 750 MG in SODIUM CHLORIDE 0.9% 250 ML IV SCH (04:15)
[2017-06-03 08:40] VITALS: BP 156/84
[2017-06-03] MEDS: HYDROmorphone 2 MG/1 ML VIAL IV PRN (10:13)
[2017-06-03] MEDS: hydroCHLOROthiazide 25 MG TABLET PO SCH (10:14)
[2017-06-03] MEDS: PROPRANOLOL 20 MG TABLET PO SCH (10:14)
[2017-06-03] MEDS: DEXAMETHASONE 4 MG TABLET PO SCH (10:14)
[2017-06-03] MEDS: LOVASTATIN 20 MG TABLET PO SCH (10:14)
[2017-06-03] MEDS: POTASSIUM CHLORIDE 8 MEQ CAPSULE PO SCH (10:14)
[2017-06-03] MEDS: ZINC OXIDE PASTE 113 GM TUBE TOP SCH (10:15)
[2017-06-03] MEDS: SODIUM HYPOCHLORITE 0.25% IRRIG 473 ML BOTTLE TOP SCH (10:15)
[2017-06-03] MEDS: MEGESTROL ES 125 MG/ML 30 ML/BOTTLE PO SCH (10:16)
[2017-06-03] MEDS ORDERED: VANCOMYCIN INJ 750 MG in SODIUM CHLORIDE 0.9% 150 ML IV SCH (15:00)
== END 2017-06-03 11:54 | DRG 41 ==
LOC: N.4E 19:23
PROVIDERS: ADMIT Specialist; ATTEND Specialist